=== PATIENT | female | born 1960 | race Caucasian/White ===

== ENCOUNTER 2016-08-22 00:31 | Emergency (ER) | payer OTHER ==
[~2016-08-22] VITALS: Ht 154.9 cm; Wt 70.3 kg
[~2016-08-22 00:31] MED LIST: CHOL10003 PO; LOSA50TA6 PO
[2016-08-22 00:51] VITALS: BP 176/80
[2016-08-22] MEDS ORDERED: MUPI15CR TP (01:06)
[2016-08-22] MEDS ORDERED: CLIN-44 PO (01:06)
--- NOTE | 2016-08-22 01:07 | PHYS DOC ---
Past Medical History Past Medical History: Diabetes-Type II, Glaucoma, Hypertension Past Surgical History: Other Additional Past Surgical Histo: carpal tunnel, Alcohol Use: None Drug Use: None Adult General Chief Complaint Chief Complaint: ABSCESS HPI HPI Patient is a 56 year old female with history of hypertension diabetes type 2 and regular, who presents today with left abdominal abscess that she noted today. Patient denies any fever. She states she squeezed some yellowish material from the abscess today. PCP Dr. Luz Review of Systems Review of Systems Constitutional: Denies fever or chills [] Eyes: Denies change in visual acuity, redness, or eye pain [] HENT: Denies nasal congestion or sore throat [] Musculoskeletal: Denies back pain or joint pain [] Integument: Left abdominal wall abscess Neurologic: Denies headache, focal weakness or sensory changes [] Endocrine: Denies polyuria or polydipsia [] Current Medications Current Medications Current Medications Medications (Trade) Dose Ordered Sig/Siomara Start Time Stop Time Status Last Admin Dose Admin Diphtheria/ Tetanus/Acell Pertussis (Boostrix) 0.5 ml ONCE ONCE 08/22/16 01:15 08/22/16 01:16 Allergies Allergies Allergies Coded Allergies Type Severity Reaction Last Updated Verified No Known Drug Allergies 08/30/15 No Physical Exam Physical Exam Constitutional: Well developed, well nourished, no acute distress, non-toxic appearance. [] HENT: Normocephalic, atraumatic, bilateral external ears normal, oropharynx moist, no oral exudates, nose normal. [] Abdomen: Bowel sounds normal, soft, no tenderness, no masses, no pulsatile masses. [] Skin: Left lateral mid abdomen with an area of redness approximately 2 x 1 cm. The area is warm to touch very tender to palpate but no fluctuance. Back: No tenderness, no CVA tenderness. [] Extremities: No tenderness, no cyanosis, no clubbing, ROM intact, no edema. [] Neurologic: Alert and oriented X 3, normal motor function, normal sensory function, no focal deficits noted. [] Psychologic: Affect normal, judgement normal, mood normal. [] Current Patient Data Vital Signs Vital Signs Date Time Temp Pulse Resp B/P (MAP) Pulse Ox O2 Delivery O2 Flow Rate FiO2 08/22/16 00:51 98.4 68 16 97 Room Air 98.4 EKG EKG [] Radiology/Procedures Radiology/Procedures [] Course & Med Decision Making Course & Med Decision Making Pertinent Labs and Imaging studies reviewed. (See chart for details) Patient has left lateral abdomen abscess that is not ready to be drained today. She was discharged with clindamycin and Bactroban cream. She was given tetanus in the ED. Warm compresses recommend to the area. F/u with PCP in 1-2 weeks. Return precautions provided. Dragon Disclaimer Dragon Disclaimer This electronic medical record was generated, in whole or in part, using a voice recognition dictation system. Departure Departure Impression: Primary Impression: Abscess of abdominal wall Disposition: HOME, SELF-CARE Condition: STABLE Referrals: MICHELLE LUZ MD (PCP) Follow-up with your doctor in 1-2 weeks Patient Instructions: Abscess Additional Instructions: You were seen for an abscess of the left abdomen. Keep the area clean and dry. Apply warm compresses to the area once or twice a day. Take the prescribed antibiotic until completed. We gave you a cream to apply to the area. Use it as directed. Follow-up with your doctor in 1-2 weeks. Scripts Mupirocin Calcium (BACTROBAN CREAM) 15 Gm Cream..g. 1 ALEX TP TID, #30 GM Prov: ANTHONY OLSEN APRN 08/22/16 Clindamycin Hcl (CLINDAMYCIN HCL) 150 Mg Capsule 3 CAP PO TID, #90 CAP Prov: ANTHONY OLSEN APRN 08/22/16 ANTHONY OLSEN APRN August 22, 2016 01:07
[2016-08-22] MEDS ORDERED: DIPHTH,PERTUSS(ACELL),TET TOX 0.5 ML DISP.SYRIN. VAX IM ONE (01:15)
== END 2016-08-22 01:21 | disposition home or self-care (01) ==
LOC: ER 00:31
DX: L02.211 Cutaneous abscess of abdominal wall (principal); E11.39 Type 2 diabetes mellitus with other diabetic ophthalmic complication; H40.9 Unspecified glaucoma; I10 Essential (primary) hypertension; G56.00 Carpal tunnel syndrome, unspecified upper limb
CPT/HCPCS: 90471; 90715; 99283-25

== ENCOUNTER 2019-07-29 01:38 | Emergency (ER) | payer OTHER ==
[~2019-07-29] VITALS: Ht 154.9 cm; Wt 84.1 kg
[~2019-07-29 01:38] MED LIST changes: +ATOR10TA60 PO; +CLIN150C14 PO; +LOSA-73 PO; +LOSA100T2 PO; -LOSA50TA6 PO; +METF500T11 PO; +MUPI15CR TP; +PRAM0.255 PO
[2019-07-29 01:52] VITALS: BP 164/78
--- NOTE | 2019-07-29 02:22 | PHYS DOC ---
Past Medical History Past Medical History: Diabetes-Type II, Glaucoma, Hypertension Past Surgical History: Other Additional Past Surgical Histo: carpal tunnel, Smoking Status: Never Smoker Alcohol Use: None Drug Use: None General Adult EDM: Chief Complaint: ITCHING HPI: HPI: Patient is a 59 year old female who presents with complaint of rash on her face. Patient states that she was told that it was separate dermatitis and initially medication as prescribed had helped. She states that she was told that it was due to elevated blood sugar. Patient states that she had stopped using the medication a couple of days ago and then it returned and she started using again yesterday but it has started to help yet.[] Review of Systems: Review of Systems: Constitutional: Denies fever or chills. [] Respiratory: Denies cough or shortness of breath. [] Cardiovascular: Denies chest pain or edema. [] GI: Denies abdominal pain, nausea, vomiting, bloody stools or diarrhea. [] Integument: Complains of rash. [] Neurologic: Denies headache, focal weakness or sensory changes. [] Heart Score: Risk Factors: Risk Factors: DM, Current or recent (<one month) smoker, HTN, HLP, family history of CAD, obesity. Risk Scores: Score 0 - 3: 2.5% MACE over next 6 weeks - Discharge Home Score 4 - 6: 20.3% MACE over next 6 weeks - Admit for Clinical Observation Score 7 - 10: 72.7% MACE over next 6 weeks - Early Invasive Strategies Allergies: Allergies: Allergies Coded Allergies Type Severity Reaction Last Updated Verified No Known Drug Allergies 08/30/15 No Physical Exam: PE: Constitutional: Well developed, well nourished, no acute distress, non-toxic appearance. [] Neck: Normal range of motion, no tenderness, supple, no stridor. [] Cardiovascular: Regular rate and rhythm[] Lungs & Thorax: Bilateral breath sounds clear to auscultation [] Skin: Skin of face demonstrates erythematous, raised patches that are symmetric. Patches noted to the right side of face just lateral to the mouth as well as the right eye, demonstrate honey crusting appearance [] Neurologic: Alert and oriented X 3, no focal deficits noted. [] Current Patient Data: Vital Signs: Vital Signs Date Time Temp Pulse Resp B/P (MAP) Pulse Ox O2 Delivery O2 Flow Rate FiO2 5/2/20 01:52 98.5 98 20 164/78 (106) 98 Room Air 98.5 EKG: EKG: [] Radiology/Procedures: Radiology/Procedures: [] Course & Med Decision Making: Course & Med Decision Making Pertinent Labs and Imaging studies reviewed. (See chart for details) [] Dragon Disclaimer: Dragon Disclaimer: This electronic medical record was generated, in whole or in part, using a voice recognition dictation system. Departure Departure Impression: Primary Impression: Melissa Disposition: 01 HOME, SELF-CARE Condition: STABLE Referrals: MICHELLE BURRIS MD (PCP) Patient Instructions: ROCKY Portillo Jr. DO July 29, 2019 02:22
== END 2019-07-29 02:28 | disposition home or self-care (01) ==
LOC: ER 01:38
DX: L01.00 Impetigo, unspecified (principal); I10 Essential (primary) hypertension; E11.39 Type 2 diabetes mellitus with other diabetic ophthalmic complication; H40.9 Unspecified glaucoma
CPT/HCPCS: 99281

== ENCOUNTER 2020-05-16 15:22 | Observation (INO) | payer OTHER ==
[~2020-05-16] VITALS: Ht 154.9 cm; Wt 83.8 kg
[~2020-05-16 15:22] MED LIST changes: -CLIN150C14 PO; +CLIN150C15 PO; +METF-658 PO; -METF500T11 PO
[2020-05-16] MEDS ORDERED: IPRATRPIUM/ALBUTEROL 0.5/2.5MG 3 ML NEBU. NEB ONE (15:30)
[2020-05-16] MEDS ORDERED: methylPREDNISolone SOD SUCC PF 125 MG/2 ML VIAL. IV ONE (15:30)
--- NOTE | 2020-05-16 15:37 | ED.ADGEN ---
Past Medical History Past Medical History: Diabetes-Type II, Glaucoma, Hypertension Past Surgical History: Other Additional Past Surgical Histo: carpal tunnel, Smoking Status: Never Smoker Alcohol Use: None Drug Use: None General Adult EDM: Chief Complaint: SHORTNESS OF BREATH HPI: HPI: Patient is a 59-year-old female who arrives ambulatory to the emergency department complaining of a rash with shortness of air. Patient reports she has had a rash for the past 3 days and just started prednisone yesterday. The patient was prescribed prednisone by her primary care physician for concerns about a potential medication reaction. Patient has been taking an anxiety medication over the past 2 weeks and states she had taken it previous to this without incident. Patient states today however she is developed substernal chest tightness in addition to her rash. Patient describes the rash of her chest, back, arms and legs. She states it is raised and nonpainful. Patient states however with being short of air and developing chest tightness she thought she needed to be evaluated. She denies any history of fever, cough or Covid exposure. She further denies any diaphoresis or nausea. She is awake, alert and nontoxic-appearing. Review of Systems: Review of Systems: Constitutional: Denies fever or chills. [] Eyes: Denies change in visual acuity. [] HENT: Denies nasal congestion or sore throat. [] Respiratory: Reports shortness of breath. [] Cardiovascular: Reports chest pain/tightness. Denies edema. [] GI: Denies abdominal pain, nausea, vomiting, bloody stools or diarrhea. [] : Denies dysuria. [] Musculoskeletal: Denies back pain or joint pain. [] Integument: Reports rash. [] Neurologic: Denies headache, focal weakness or sensory changes. [] Endocrine: Denies polyuria or polydipsia. [] Lymphatic: Denies swollen glands. [] Psychiatric: Denies depression or anxiety. [] Current Medications: Current Medications Medications (Trade) Dose Ordered Sig/Siomara Start Time Stop Time Status Last Admin Dose Admin Albuterol/ Ipratropium (Duoneb) 3 ml 1X ONCE 05/16/20 15:30 05/16/20 15:33 DC 05/16/20 16:06 3 ML Methylprednisolone Sodium Succinate (SOLU-Medrol 125MG VIAL) 125 mg 1X ONCE 05/16/20 15:30 05/16/20 15:33 DC Allergies: Allergies: Allergies Coded Allergies Type Severity Reaction Last Updated Verified No Known Drug Allergies 08/30/15 No Physical Exam: PE: Constitutional: Well developed, well nourished, no acute distress, non-toxic appearance. [] HENT: Normocephalic, atraumatic, bilateral external ears normal, oropharynx moist, no oral exudates, nose normal. [] Eyes: PERRLA, EOMI, conjunctiva normal, no discharge. [] Neck: Normal range of motion, no tenderness, supple, no stridor. [] Cardiovascular:Heart rate regular rhythm, no murmur [] Lungs & Thorax: Bilateral breath sounds clear to auscultation [] Abdomen: Bowel sounds normal, soft, no tenderness, no masses, no pulsatile masses. [] Skin: Patient has a generalized rash of her extremities as well as her torso (fr ont and back). This rash is raised and erythematous. It appears most consistent with urticaria versus a contact dermatitis. The rash itself is not petechial nor is it tender upon palpation. There are no clinical signs of cellulitic character. Back: No tenderness, no CVA tenderness. [] Extremities: No tenderness, no cyanosis, no clubbing, ROM intact, no edema. [] Neurologic: Alert and oriented X 3, normal motor function, normal sensory function, no focal deficits noted. [] Psychologic: Affect normal, judgement normal, mood normal. [] Current Patient Data: Labs: Laboratory Tests Test 05/16/20 15:51 White Blood Count 11.1 x10^3/uL (4.0-11.0) H Red Blood Count 4.37 x10^6/uL (3.50-5.40) Hemoglobin 12.4 g/dL (12.0-15.5) Hematocrit 37.4 % (36.0-47.0) Mean Corpuscular Volume 86 fL (79-100) Mean Corpuscular Hemoglobin 28 pg (25-35) Mean Corpuscular Hemoglobin Concent 33 g/dL (31-37) Red Cell Distribution Width 13.7 % (11.5-14.5) Platelet Count 193 x10^3/uL (140-400) Neutrophils (%) (Auto) 91 % (31-73) H Lymphocytes (%) (Auto) 7 % (24-48) L Monocytes (%) (Auto) 1 % (0-9) Eosinophils (%) (Auto) 0 % (0-3) Basophils (%) (Auto) 0 % (0-3) Neutrophils # (Auto) 10.1 x10^3/uL (1.8-7.7) H Lymphocytes # (Auto) 0.8 x10^3/uL (1.0-4.8) L Monocytes # (Auto) 0.1 x10^3/uL (0.0-1.1) Eosinophils # (Auto) 0.0 x10^3/uL (0.0-0.7) Basophils # (Auto) 0.0 x10^3/uL (0.0-0.2) Segmented Neutrophils % 90 % (35-66) H Band Neutrophils % 5 % (0-9) Lymphocytes % 4 % (24-48) L Monocytes % 1 % (0-10) Platelet Estimate Adequate (ADEQUATE) Sodium Level 136 mmol/L (136-145) Potassium Level 4.3 mmol/L (3.5-5.1) Chloride Level 100 mmol/L (98-107) Carbon Dioxide Level 24 mmol/L (21-32) Anion Gap 12 (6-14) Blood Urea Nitrogen 26 mg/dL (7-20) H Creatinine 1.1 mg/dL (0.6-1.0) H Estimated GFR (Cockcroft-Gault) 51.0 BUN/Creatinine Ratio 24 (6-20) H Glucose Level 252 mg/dL (70-99) H Calcium Level 9.1 mg/dL (8.5-10.1) Total Bilirubin 0.3 mg/dL (0.2-1.0) Aspartate Amino Transferase (AST) 12 U/L (15-37) L Alanine Aminotransferase (ALT) 18 U/L (14-59) Alkaline Phosphatase 64 U/L (46-116) Troponin I Quantitative < 0.017 ng/mL (0.000-0.055) JS-Laz-Y-Type Natriuretic Peptide 164 pg/mL (0-124) H Total Protein 7.2 g/dL (6.4-8.2) Albumin 3.4 g/dL (3.4-5.0) Albumin/Globulin Ratio 0.9 (1.0-1.7) L Laboratory Tests 05/16/20 15:51 Laboratory Tests 05/16/20 15:51 Vital Signs: Vital Signs Date Time Temp Pulse Resp B/P (MAP) Pulse Ox O2 Delivery O2 Flow Rate FiO2 05/16/20 16:06 Room Air 05/16/20 15:22 98.6 83 18 183/88 (119) 98 98.6 EKG: EKG: EKG was obtained at 1547 hrs. and revealed a normal sinus rhythm with a ventricular rate of 77 bpm. Intervals are within normal limits and there are no acute ST/T wave changes to denote ischemia. [] Heart Score: HEART Score for Chest Pain: HEART Score for Chest Pain Response (Comments) Value History Slighlty/Non-Suspicious 0 ECG Normal 0 Age >45 - < 65 1 Risk Factors 1 or 2 Risk Factors 1 Troponin < Normal Limit 0 Total 2 Risk Factors: Risk Factors: DM, Current or recent (<one month) smoker, HTN, HLP, family history of CAD, obesity. Risk Scores: Score 0 - 3: 2.5% MACE over next 6 weeks - Discharge Home Score 4 - 6: 20.3% MACE over next 6 weeks - Admit for Clinical Observation Score 7 - 10: 72.7% MACE over next 6 weeks - Early Invasive Strategies Radiology/Procedures: Radiology/Procedures: [] Impression: [facility] [address] [place], [place] [id number] IMAGING REPORT Signed PATIENT: ANA MARTIN ACCOUNT: [id number] : 1960 LOCATION: ER AGE: 59 SEX: F EXAM STATUS: REG ER ORD. PHYSICIAN: DARA CHUNG DO REASON: Shortness of air PROCEDURE: PORTABLE CHEST 1V EXAMINATION: XR CHEST 1V CLINICAL HISTORY: Shortness of breath EXAM DATE/TIME: 05/16/2020 3:39 PM COMPARISON: None FINDINGS: Lines, Tubes, and Devices: None. Cardiomediastinal Silhouette: Within normal limits. Lungs and Pleura: No evidence of focal airspace consolidation or pleural effusion. Pulmonary vasculature unremarkable. Bones and Soft Tissues: Degenerative changes of the thoracic spine. IMPRESSION: No evidence of acute cardiopulmonary abnormality. Electronically signed by: Dominguez Ram DO (05/16/2020 3:59 PM) [id number] DICTATED and SIGNED BY: DOMINGUEZ RAM DO DATE: 05/16/20 [id number] Course & Med Decision Making: Course & Med Decision Making Pertinent Labs and Imaging studies reviewed. (See chart for details) [] Dragon Disclaimer: Dragon Disclaimer: This electronic medical record was generated, in whole or in part, using a voice recognition dictation system. Departure Departure Impression: Primary Impression: Chest pain Additional Impressions: Prerenal azotemia Hyperglycemia due to type 2 diabetes mellitus Rash and nonspecific skin eruption Elevated blood pressure reading Disposition: ADMITTED INPT THIS HOSP Admitting Physician: Michelle Burris Condition: STABLE Referrals: MICHELLE BURRIS MD (PCP) Problem Qualifiers DARA CHUNG DO May 16, 2020 15:37
--- NOTE | 2020-05-16 15:54 | EKG ---
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
[2020-05-16 16:02] LABS: BASO % 0 % (0-3); EOS % 0 % (0-3); HEMATOCRIT 37.4 % (36.0-47.0); HEMOGLOBIN 12.4 g/dL (12.0-15.5); LYMPH # 0.8 x10^3/uL (1.0-4.8); LYMPH % 7 % (24-48); MEAN CORPUSCULAR HEMOGLOBIN 28 pg (25-35); MEAN CORPUSCULAR HGB CONC 33 g/dL (31-37); MEAN CORPUSCULAR VOLUME 86 fL (79-100); MONO # 0.1 x10^3/uL (0.0-1.1); MONO % 1 % (0-9); NEUT # 10.1 x10^3/uL (1.8-7.7); NEUT % 91 % (31-73); PLATELET COUNT 193 x10^3/uL (140-400); RED BLOOD COUNT 4.37 x10^6/uL (3.50-5.40); RED CELL DISTRIBUTION WIDTH 13.7 % (11.5-14.5); WHITE BLOOD COUNT 11.1 x10^3/uL (4.0-11.0)
--- NOTE | 2020-05-16 16:02 | RAD ---
EXAMINATION: XR CHEST 1V CLINICAL HISTORY: Shortness of breath EXAM DATE/TIME: 05/16/2020 3:39 PM COMPARISON: None FINDINGS: Lines, Tubes, and Devices: None. Cardiomediastinal Silhouette: Within normal limits. Lungs and Pleura: No evidence of focal airspace consolidation or pleural effusion. Pulmonary vasculat ure unremarkable. Bones and Soft Tissues: Degenerative changes of the thoracic spine. IMPRESSION: No evidence of acute cardiopulmonary abnormality. Electronically signed by: Dominguez Hernandez DO (05/16/2020 3:59 PM) [id number]
[2020-05-16 16:24] LABS: CALCIUM 9.1 mg/dL (8.5-10.1); CREATININE 1.1 mg/dL (0.6-1.0); POTASSIUM 4.3 mmol/L (3.5-5.1)
[2020-05-16 16:30] LABS: ALBUMIN 3.4 g/dL (3.4-5.0); ALBUMIN/GLOBULIN RATIO 0.9 (1.0-1.7); TOTAL BILIRUBIN 0.3 mg/dL (0.2-1.0); TOTAL PROTEIN 7.2 g/dL (6.4-8.2)
[2020-05-16 17:05] LABS: % BANDS 5 % (0-9); % LYMPHS 4 % (24-48); % MONOS 1 % (0-10); % SEGS 90 % (35-66); PLT ESTIMATE ADEQUATE (ADEQUATE)
[2020-05-16 20:10] VITALS: BP 165/80
[2020-05-16] MEDS ORDERED: TELM1TAB25 PO (20:24)
[2020-05-16] MEDS ORDERED: ACETAMINOPHEN 325 MG TABLET. PO PRN (20:45)
[2020-05-16] MEDS ORDERED: PRAMIPEXOLE 0.25 MG TABLET. PO SCH (21:00)
[2020-05-16] MEDS: diphenhydrAMINE HCL 25 MG CAPSULE PO PRN (21:17)
[2020-05-16] MEDS ORDERED: ATORVASTATIN CALCIUM 10 MG TABLET. PO SCH (21:30)
[2020-05-16 23:15] VITALS: BP 137/63
[2020-05-17] MEDS ORDERED: METF10007 PO (00:16)
[2020-05-17 03:10] VITALS: BP 130/63
[2020-05-17] MEDS: diphenhydrAMINE HCL 25 MG CAPSULE PO PRN (03:11)
[2020-05-17 07:00] VITALS: BP 162/79
[2020-05-17] MEDS ORDERED: INSU100I32 SQ (07:15)
[2020-05-17] MEDS ORDERED: metFORMIN 500 MG TABLET PO SCH (08:00)
[2020-05-17 08:25] VITALS: BP 162/79
[2020-05-17] MEDS ORDERED: predniSONE 20 MG TABLET PO SCH (09:00)
[2020-05-17] MEDS ORDERED: ATORVASTATIN CALCIUM 10 MG TABLET. PO SCH (09:00)
[2020-05-17] MEDS ORDERED: [UNRECOGNIZED DRUG - OTHER] PO SCH (09:00)
[2020-05-17] MEDS ORDERED: hydroCHLOROthiazide 12.5 MG CAPSULE PO SCH (09:00)
[2020-05-17] MEDS ORDERED: INSULIN GLARGINE SYRINGE. SQ SCH (09:00)
[2020-05-17] MEDS ORDERED: LOSARTAN POTASSIUM 50 MG TABLET. PO SCH (09:00)
--- NOTE | 2020-05-17 09:18 | PDOC ---
Provider Note Date of Service: DATE: 05/17/20 TIME: 09:18 Provider Note dictated Justifications for Admission Other Justification MICHELLE BURRIS MD May 17, 2020 09:18
--- NOTE | 2020-05-17 09:40 | SSS ---
ADMIT DATE: 05/17/2020 23-HOUR SUMMARY HOSPITAL SUMMARY: The patient was admitted with ongoing urticaria of unknown type, taking prednisone at home. She had some chest pressure at home that has resolved. EKG, chest x-ray and all labs were unremarkable. She is comfortable to be followed as an outpatient. FINAL DIAGNOSIS: Chest pressure, likely secondary to idiopathic urticaria. OPERATIONS, PROCEDURES, COMPLICATIONS, CONSULTATIONS: None. DISPOSITION: Home meds remain the same. Office followup in 4 days. PROGNOSIS: Good. MICHELLE BURRIS MD DR: JULEE/jose JOB#: [id number] / [id number]
--- NOTE | 2020-05-17 10:10 | NUR ---
Anxious to go home. Dr. Luz orders to discharge. Discharge instructions given. No new prescriptions ordered. Will follow up with PCP on Wednesday. Pt discharged home accompanied by spouse.
[2020-05-17] MEDS ORDERED: PRAMIPEXOLE 0.25 MG TABLET. PO SCH (21:00)
== END 2020-05-17 10:10 | disposition home or self-care (01) ==
LOC: ER 15:22 → ED HOLD 16:50 → 2 SOUTH 19:52
PROVIDERS: ADMIT Family Medicine; ATTEND Family Medicine
DX: R07.89 Other chest pain (principal); I10 Essential (primary) hypertension; R79.89 Other specified abnormal findings of blood chemistry; E11.65 Type 2 diabetes mellitus with hyperglycemia; R21 Rash and other nonspecific skin eruption; H40.9 Unspecified glaucoma; Z98.890 Other specified postprocedural states
CPT/HCPCS: 36415; 71045; 80053; 83880; 84484; 85007; 85025; 93005; 94640; 96372; 99285; G0378; J1815; J7512; Q0163; G0379